=== PATIENT | male | born 1970 | race Hispanic/Latino ===

== ENCOUNTER 2018-02-23 07:35 | Observation (INO) | payer OTHER ==
--- NOTE | 2018-02-22 18:06 | Diagnostic Imaging Report ---
PROCEDURE: Frontal and lateral views of the chest. COMPARISON: None. INDICATIONS: PREOP C SPINE SX TOMORROW FINDINGS: Lines/tubes: None. Lungs: The lungs are well inflated and clear. There is no evidence of pneumonia or pulmonary edema. Pleura: There is no pleural effusion or pneumothorax. Heart and mediastinum: The heart and the mediastinum are normal. Bones: No acute bony abnormality. IMPRESSION: 1. No acute cardiopulmonary disease. Dictated by: Mil Londono M.D. on 02/22/2018 at 18:09 Electronically approved by: Mil Londono M.D. on 02/22/2018 at 18:09
[2018-02-22 18:09] LABS: BASOPHILS # (AUTO) 0.1 (0.0-0.1); BASOPHILS % 0.7 % (0.0-1.0); EOSINOPHILS # (AUTO) 0.2 (0.0-0.4); EOSINOPHILS % 2.2 % (0.0-6.0); HEMATOCRIT 45.6 % (38.2-49.6); HEMOGLOBIN 16.7 g/dL (14.0-18.0); LYMPHOCYTES # (AUTO) 3.1 (1.0-3.2); LYMPHOCYTES % 30.7 % (18.0-39.1); MEAN CORPUSCULAR HEMOGLOBIN 31.4 pg (28-32); MEAN CORPUSCULAR HGB CONC 36.6 g/dL (31-35); MEAN CORPUSCULAR VOLUME 85.7 fL (81-99); MONOCYTES # (AUTO) 0.7 (0.2-0.8); NEUTROPHILS % 59.1 % (38.7-80.0); PLATELET COUNT 252 x10e3/uL (140-360); RED BLOOD COUNT 5.32 x10e6/uL (4.3-5.7); RED CELL DISTRIBUTION WIDTH 11.9 % (11.7-14.4)
[2018-02-22 18:37] LABS: PROTHROMBIN TIME 12.8 seconds (11.9-14.5)
[2018-02-22 18:38] LABS: INR 1.04; PARTIAL THROMBOPLASTIN TIME 24.7 seconds (23.8-35.5)
[2018-02-22 18:53] LABS: ANION GAP 14.5 mmol/L (8-16); BLOOD UREA NITROGEN 18 mg/dL (7-26); BUN/CREATININE RATIO 16 (6-25); CALCIUM 9.5 mg/dL (8.4-10.2); CARBON DIOXIDE 26 mmol/L (22-29); CHLORIDE 104 mmol/L (98-107); EST GLOMERULAR FILTRATION RATE > 60 ML/MIN (60-); GLUCOSE 105 mg/dL (74-118); POTASSIUM 3.5 mmol/L (3.5-5.1); SODIUM 141 mmol/L (136-145)
[~2018-02-23 07:35] MED LIST: AMLODIPINE BESYL5 MG PO; BACITRACIN 50,000 UNIT VIAL ONE; BUPIVACAINE 0.5%/EPI 30 ML SDV INJ ONE; GELATIN SPONGE SZ 100 ONE; GLIPIZIDE5 MG PO; JENTADUETO 2.51 EAC2; LISINOPRIL5 MG; THROMBIN FOR SOLN 5,000 UNIT VIAL ONE
--- OUTSIDE RECORDS SUMMARY | 2018-02-23 07:37 | XMS REPORT ---
Author Author [facility] Address Unknown Phone Unavailable Care Team Providers Care Manager Story Name Role Phone ARUN CAMPBELL Unavailable Unavailable Problems This patient has no known problems. Allergies, Adverse Reactions, Alerts This patient has no known allergies or adverse reactions. Medications This patient has no known medications. Results Test Description Test Time Test Comments Text Results Atomic Results Result Comments CHEST 2 VIEWS 2018-02-22 18:09:00 [place] [address] Patient Name: DELFINO LARA MR #: [id number] : 1970 Age/Sex: 47/M Req #: [id number] [facility] Physician: Ordered by: ARUN CAMPBELL MD Report #: [id number] Location: OR Room/Bed: Procedure: DX/CHEST 2 VIEWS Exam Date: 02/22/18 Exam Time: 1745 REPORT STATUS: Signed PROCEDURE: Frontal and lateral views of the chest. COMPARISON: None. INDICATIONS: PREOP C SPINE SX TOMORROW FINDINGS: Lines/tubes: None. Lungs: The lungs are well inflated and clear. There is no evidence of pneumonia or pulmonary edema. Pleura: There is no pleural effusion or pneumothorax. Heart and mediastinum: The heart and the mediastinum are normal. Bones: No acute bony abnormality. IMPRESSION: 1. No acute cardiopulmonary disease. Dictated by: Mil Harry M.D. on 02/22/2018 at 18:09 Electronically approved by: Mil Harry M.D. on 02/22/2018 at 18:09 Dictated By: MIL HARRY MD 08 Transcribed By: CASIMIRO on 02/22/181808 COPY TO: ARUN CAMPBELL MD
[2018-02-23] MEDS ORDERED: CEFAZOLIN SOD 1 GM VIAL ONE (08:26)
[2018-02-23] MEDS ORDERED: INSULIN REGULAR, HUMAN 100 UNIT/1 ML 3ML VIAL ONE (08:44)
[2018-02-23] MEDS ORDERED: LACTATED RINGER'S 1,000 ML IV SCH (11:08)
[2018-02-23] MEDS ORDERED: CARISOPRODOL 350 MG TAB PO PRN (11:15)
[2018-02-23] MEDS ORDERED: HYDROMORPHONE 2MG/ML INJ IV PRN (11:15)
[2018-02-23] MEDS ORDERED: MAGNESIUM/ALUMINUM/SIMETHICONE 30 ML UDC PO PRN (11:15)
[2018-02-23] MEDS ORDERED: ACETAMINOPHEN 325 MG TAB PO PRN (11:15)
[2018-02-23] MEDS ORDERED: MORPHINE SULFATE 5 MG/ML VIAL IM PRN (11:15)
[2018-02-23] MEDS ORDERED: CEPACOL SORE THROAT LOZENGES PO PRN (11:15)
[2018-02-23] MEDS ORDERED: ONDANSETRON HCL INJ 2 MG/ML VIAL IV PRN (11:15)
[2018-02-23] MEDS ORDERED: ZOLPIDEM TARTRATE 5 MG TAB PO PRN (11:15)
[2018-02-23] MEDS ORDERED: PROMETHAZINE HCL (IM) 25 MG/ML VIAL IM PRN (11:15)
[2018-02-23] MEDS ORDERED: MORPHINE SULFATE 2 MG/ML SYR IM PRN (11:30)
[2018-02-23 12:12] VITALS: BP 142/85
[2018-02-23] MEDS ORDERED: HYDROMORPHONE 1MG/1ML INJ IV PRN (12:30)
[2018-02-23 12:54] VITALS: BP 142/85
--- NOTE | 2018-02-23 13:06 | Operative Report ---
DATE OF PROCEDURE: February 23, 2018 PREOPERATIVE DIAGNOSIS: C5-6 and C6-7 spondylosis and disk herniations with foraminal stenosis and radiculopathy, M50.120. POSTOPERATIVE DIAGNOSIS: C5-6 and C6-7 spondylosis and disk herniations with foraminal stenosis and radiculopathy, M50.120. PROCEDURES: 1. C5-6 anterior cervical diskectomy and microsurgical osteophyte resection and allograft fusion, 21463. 2. C6-7 anterior cervical diskectomy and microsurgical osteophyte resection and allograft fusion, . 3. Preparation of [employer] cortical cancellous allograft, . 4. C5-6 and C6-7 anterior cervical plating with Synthes CSLP plate, [id number]. ANESTHESIA: General. INDICATIONS: The patient is a 47-year-old man who presents with C5-6 and C6-7 spondylosis and left-sided foraminal stenosis and disk herniations symptomatic with cervical radiculopathy. He was taken to the operating room for a 2-level anterior cervical decompression and fusion. PROCEDURE: After the induction of general anesthesia, the patient was placed on the operating table in the supine position. The right side of the neck was prepped and draped in sterile fashion. The fluoroscopic C-arm was positioned in cross-table lateral orientation. A small transverse incision was created on the right side of the neck superimposed on the C6 vertebral body as determined by fluoroscopy. The platysma was divided in line with the incision. A subplatysmal dissection was carried out. An avascular plane of dissection was developed medial to the sternocleidomastoid muscle and was followed medial to the carotid sheath to the anterior border of the cervical spine. The deep cervical fascia was opened. The esophagus was retracted to the left. The attachments of longus coli muscles to the anterolateral aspects of vertebral bodies of C5, C6 and C7 were divided. The anterior longitudinal ligament was resected. Shelby posts were inserted into C5 and C7. The Shelby distractor was used to distract both disk spaces simultaneously. The anterior annuli of the disks were incised with a number 11 blade, and the contents of both disks were thoroughly evacuated with angled curets and pituitary rongeurs. The posterior osteophytes were meticulously drilled with a 2 mm cutting bur on a high-speed drill until they were completely removed. The posterior annulus of the disk, herniated disk material, and the posterior longitudinal ligament were resected layer by layer until the dura was fully exposed and decompressed. The medial aspects of the uncinate processes were resected bilaterally to further expose any compressed origins of the corresponding nerve roots. After a satisfactory decompression had been achieved, the endplates were prepared for fusion. Two pieces of tricortical iliac crest allograft were cut to the sizes and shapes of the disk spaces and were inserted into the disk spaces under distraction and fluoroscopic guidance. The distraction was released, and the distraction posts were removed. A Synthes CSLP variable type anterior cervical plate measuring 34 mm was selected and affixed to vertebral bodies of C5, C6 and C7 with 3 pairs of 14 x 4.35 mm screws. All screws were drilled and tapped under lateral fluoroscopic guidance. All screws were locked with the appropriate locking screws. An excellent construct was obtained. The wound was copiously irrigated with Bacitracin solution. Meticulous hemostasis was secured. The retractor was removed. The platysma was closed with 3-0 Vicryl sutures. The skin was closed with 4-0 Monocryl sutures in subcuticular fashion. Steri-Strips and a dressing were applied. The patient was awakened, extubated and taken to the postanesthesia care unit in stable condition. No intraoperative complications were encountered. Estimated blood loss was . Job#: [id number] EV
[2018-02-23] MEDS ORDERED: CEFAZOLIN SOD 1 GM/NS 50ML 50 ML IV SCH (14:00)
[2018-02-23 16:23] VITALS: BP 142/83
[2018-02-23] MEDS ORDERED: METFORMIN HCL 500 MG TAB PO SCH (16:30)
[2018-02-23] MEDS: CEFAZOLIN SOD 1 GM VIAL IV SCH (17:26)
[2018-02-23 18:38] VITALS: BP 142/85
[2018-02-23] MEDS ORDERED: LABETALOL HCL 5 MG/ML 20ML VIAL ONE (18:55)
[2018-02-23] MEDS ORDERED: SEVOFLURANE INHAL SOLN 250 ML PEN BTL ONE (18:55)
[2018-02-23] MEDS ORDERED: ONDANSETRON HCL INJ 2 MG/ML VIAL ONE (18:55)
[2018-02-23] MEDS ORDERED: PROPOFOL IV EMULSION 10 MG/ML 20 ML VIAL ONE (18:55)
[2018-02-23] MEDS ORDERED: ROCURONIUM BROMIDE 10 MG/ML 5ML VIAL ONE (18:55)
[2018-02-23] MEDS ORDERED: DEXAMETHASONE SOD PHOS INJ 4 MG/ML VIAL ONE (18:55)
[2018-02-23] MEDS ORDERED: LIDOCAINE HCL 2% LOCAL INJ 5 ML SDV VIAL INJ ONE (18:55)
[2018-02-23 20:00] VITALS: BP 143/91
[2018-02-23] MEDS: OXYCODONE/ACETAMINOPHEN 5-325 1 EACH TABLET PO PRN (20:19)
[2018-02-23] MEDS ORDERED: LISINOPRIL 10 MG TAB PO SCH (21:00)
[2018-02-24] VITALS: BP 144/83
[2018-02-24] MEDS: OXYCODONE/ACETAMINOPHEN 5-325 1 EACH TABLET PO PRN ×2 (02:27→11:10)
[2018-02-24] MEDS: CEFAZOLIN SOD 1 GM VIAL IV SCH ×2 (02:27→09:45)
[2018-02-24 04:00] VITALS: BP 125/81
--- NOTE | 2018-02-24 06:37 | Diagnostic Imaging Report ---
C-SPINE 2 VIEWS AP LATERAL HISTORY: Post surgical repair of lower cervical spine COMPARISON: None FINDINGS: Bones: No displaced fracture. Osseous alignment is within normal limits. Patient is status post anterior fusion of lower cervical spine from C5 through C7 with anterior fenestrated plate and screws. Joints: The joint spaces are well-maintained. Soft tissues: Mild anterior cervical spine edema at the site of surgery with minimal right-sided subcutaneous emphysema. IMPRESSION: 1. Minimal soft tissue postsurgical edema and emphysema. 2. No evidence of hardware failure. Signed by: Dr. Go Hanson M.D. on 02/24/2018 6:28 AM
[2018-02-24] MEDS ORDERED: GLIPIZIDE 5 MG TAB PO SCH (07:30)
[2018-02-24 08:04] VITALS: BP 134/84
[2018-02-24] MEDS ORDERED: AMLODIPINE BESYLATE 5 MG TAB PO SCH (09:00)
[2018-02-24 11:49] VITALS: BP 142/89
== END 2018-02-24 12:35 | disposition home or self-care (01) ==
LOC: OR 07:35 → IMCU 12:12
PROVIDERS: ADMIT Neurological Surgery; ATTEND Neurological Surgery
DX: M50.123 Cervical disc disorder at C6-C7 level with radiculopathy (principal); I10 Essential (primary) hypertension; E11.9 Type 2 diabetes mellitus without complications
CPT/HCPCS: 20931; 22551; 22552; 22845; 36415 ×3; 71046; 72040; 77003; 80048; 82948 ×2; 85025; 85610; 85730; 86850; 86900; 88304; 93005; C1763; G0378 ×2; J0690 ×2; J1100; J1170; J2001; J2405; J3490